=== PATIENT | male | born 1990 | race Caucasian/White ===

== ENCOUNTER → 2020-08-19 | Day surgery (SDC) | payer BC, MEDICAID ==
[2020-08-19] MEDS: Lactated Ringers 1,000 ML IV SCH (08:47)
[2020-08-19] MEDS: Benzocaine 20% Oral Spray 59.2 ML Canister MUCMEM ONE (08:56)
[2020-08-19] MEDS: Meperidine PF 25 MG/ML SDV IV ONE ×2 (08:59→09:04)
[2020-08-19] MEDS: Midazolam 1 MG/ML 2 ML SDV IV ONE ×2 (09:00→09:01)
[2020-08-19 10:13] VITALS: BP 115/69; PULSE 58
--- NOTE | 2020-08-19 13:19 | OR ---
DATE OF OPERATION: 08/19/2020 PREOPERATIVE DIAGNOSIS: 1. EPIGASTRIC PAIN. 2. HISTORY OF CHRONIC GASTROESOPHAGEAL REFLUX DISEASE. POSTOPERATIVE DIAGNOSIS: 1. EPIGASTRIC PAIN. 2. HISTORY OF CHRONIC GASTROESOPHAGEAL REFLUX DISEASE. SURGEON: Michael Greco MD PROCEDURE: DIAGNOSTIC ESOPHAGOGASTRODUODENOSCOPY WITH BIOPSIES X4, JESSI. ANESTHESIA: Conscious sedation with continuous O2 saturation monitoring and nurse assist. COMPLICATIONS: None. SPECIMEN: 1. Antral JESSI. 2. Upper fundus biopsy x2. 3. Distal esophageal biopsy x2. FINDINGS: 1. Full-length diagnostic EGD. 2. Small hiatal hernia with spontaneous GERD. 3. Short-segment Bueno's changes. 4. Focal gastritis, upper fundus. RECOMMENDATIONS: Aggressive treatment pending path reports and JESSI. INDICATIONS: Kareem is a 30-year-old with ongoing issues with midepigastric pain. He has a history of known peptic ulcer disease and GERD. Catherine sent him for a diagnostic scope. DESCRIPTION OF PROCEDURE: The patient was prepped and draped, placed in the left lateral decubitus position with head of the bed elevated. A lubricated Olympus gastroscope was inserted over a bit, advanced to cricopharyngeus area, and easily intubated into the esophagus. The esophageal lining was benign until its most distal portion. The patient does have a small hiatal hernia present with spontaneous reflux. There was no distal esophagitis, stricturing, or ulceration. There are however a few short-segment Bueno's changes seen. Biopsy of the fulfillment representative areas x2 was taken. The scope was easily advanced into the stomach, through the pylorus, and into the second portion of the duodenum. This and the duodenal bulb were benign. The scope was brought back into the stomach and retroflexed. The upper fundus and cardia confirmed a small hernia from below. There were a few focal areas of gastritis in the upper fundus and a biopsy was taken of each. The rest of the fundus and antrum on direct examination were grossly benign. A CLOtest was obtained. Air was suctioned and the scope removed without complication. JARED/EVERETT /[id number]
== END ==
LOC: CC.SDS 08:28
PROVIDERS: ATTEND Family Medicine
DX: K29.50 Unspecified chronic gastritis without bleeding (principal); K21.9 Gastro-esophageal reflux disease without esophagitis; K22.70 Barrett's esophagus without dysplasia; K44.9 Diaphragmatic hernia without obstruction or gangrene; F17.210 Nicotine dependence, cigarettes, uncomplicated; Z01.812 Encounter for preprocedural laboratory examination; Z20.822 Contact with and (suspected) exposure to COVID-19; Z87.11 Personal history of peptic ulcer disease; Z79.899 Other long term (current) drug therapy
CPT/HCPCS: 87081; J2175; J2250; J7120